=== PATIENT | male | born 1985 | race Caucasian/White ===

== ENCOUNTER 2017-08-28 03:03 | Emergency (ER) | payer OTHER ==
[~2017-08-28] VITALS: Ht 180.3 cm; Wt 68.0 kg
[~2017-08-28 03:03] MED LIST: TRAZODONE HCL50 MG PO
[2017-08-28 03:35] LABS: ABSOLUTE BASOPHILS 0.1 thou/uL (0.0-0.2); ABSOLUTE EOSINOPHILS 0.1 thou/uL (0.0-0.7); ABSOLUTE LYMPHOCYTES 2.9 thou/uL (0.8-5.3); ABSOLUTE MONOCYTES 0.6 thou/uL (0.0-1.2); ABSOLUTE NEUTROPHILS 6.1 thou/uL (1.6-8.1); BASOPHILS 0.6 %; EOSINOPHILS 0.9 %; HEMATOCRIT 46.1 % (42.0-52.0); HEMOGLOBIN 15.7 gm/dL (14.0-18.0); LYMPHOCYTES 30.1 %; MCH 31.7 pg (26.0-34.0); MCHC 34.1 g/dL (28.0-37.0); MONOCYTES 5.8 %; MPV 9.4 fl. (7.2-11.1); NUCLEATED RBCS 0 /100WBC; PLATELET COUNT* 149 thou/uL (150-400); POLYS 62.6 %; RBC 4.96 mil/uL (4.50-6.00); WBC 9.8 thou/uL (4.0-11.0)
[2017-08-28 03:45] LABS: CALCIUM 9.3 mg/dL (8.5-10.1); POTASSIUM 3.7 mmol/L (3.5-5.1)
[2017-08-28 03:49] LABS: ALBUMIN 4.2 g/dL (3.4-5.0); TOTAL BILIRUBIN 0.5 mg/dL (<0.1-1.0); TOTAL PROTEIN 7.5 g/dL (6.4-8.2)
[2017-08-28 03:54] LABS: URINE BILIRUBIN NEGATIVE (Negative); URINE BLOOD NEGATIVE (Negative); URINE CLARITY CLEAR; URINE COLOR YELLOW; URINE GLUCOSE-RANDOM NEGATIVE (Negative); URINE KETONES NEGATIVE (Negative); URINE LEUKOCYTES-REFLEX NEGATIVE (Negative); URINE NITRITE-REFLEX NEGATIVE (Negative); URINE PROTEIN TRACE (Negative); URINE SPECIFIC GRAVITY 1.025 (1.005-1.030); URINE UROBILINOGEN 0.2 E.U./dl (0.2-1.0)
[2017-08-28 03:59] LABS: AMP/METHAMP Negative (Negative); BARBITURATES Negative (Negative); BENZODIAZEPINES Negative (Negative); COCAINE Negative (Negative); METHADONE Negative (Negative); OPIATES Negative (Negative); PCP Negative (Negative); THC POSITIVE (Negative)
[2017-08-28 04:17] VITALS: BP 141/82
== END 2017-08-28 04:22 | disposition home or self-care (01) ==
LOC: M.ERS 03:03
PROVIDERS: Emergency Medicine
DX: R10.13 Epigastric pain (principal)

== ENCOUNTER → 2018-09-15 | Emergency (ER) | payer OTHER ==
[~2018-09-15] VITALS: Ht 182.9 cm; Wt 69.0 kg
[2018-09-15 16:00] LABS: URINE BILIRUBIN NEGATIVE (Negative); URINE BLOOD NEGATIVE (Negative); URINE CLARITY CLEAR; URINE COLOR YELLOW; URINE GLUCOSE-RANDOM NEGATIVE (Negative); URINE KETONES TRACE (Negative); URINE LEUKOCYTES-REFLEX NEGATIVE (Negative); URINE NITRITE-REFLEX NEGATIVE (Negative); URINE PROTEIN NEGATIVE (Negative)
[2018-09-15 16:08] LABS: AMP/METHAMP Negative (Negative); BARBITURATES Negative (Negative); BENZODIAZEPINES Negative (Negative); COCAINE Negative (Negative); METHADONE Negative (Negative); OPIATES Negative (Negative); PCP Negative (Negative); THC POSITIVE (Negative)
[2018-09-15 16:11] LABS: ABSOLUTE BASOPHILS 0.1 thou/uL (0.0-0.2); ABSOLUTE LYMPHOCYTES 1.6 thou/uL (0.8-5.3); ABSOLUTE MONOCYTES 0.9 thou/uL (0.0-1.2); ABSOLUTE NEUTROPHILS 13.3 thou/uL (1.6-8.1); BASOPHILS 0.5 %; EOSINOPHILS 0.2 %; HEMATOCRIT 48.1 % (42.0-52.0); HEMOGLOBIN 16.2 gm/dL (14.0-18.0); LYMPHOCYTES 10.3 %; MCH 31.3 pg (26.0-34.0); MCHC 33.7 g/dL (28.0-37.0); MCV 92.8 fL (80.0-100.0); MONOCYTES 5.4 %; MPV 8.6 fl. (7.2-11.1); NUCLEATED RBCS 0 /100WBC; PLATELET COUNT* 182 thou/uL (150-400); POLYS 83.6 %; RBC 5.18 mil/uL (4.50-6.00); RDW-CV 13.2 % (10.5-14.5); WBC 15.9 thou/uL (4.0-11.0)
[2018-09-15 16:28] LABS: ALBUMIN 4.9 g/dL (3.4-5.0); CALCIUM 9.7 mg/dL (8.5-10.1); POTASSIUM 3.9 mmol/L (3.5-5.1); TOTAL BILIRUBIN 0.7 mg/dL (<0.1-1.0); TOTAL PROTEIN 8.4 g/dL (6.4-8.2)
[2018-09-15 16:37] LABS: SALICYLATE < 2.8 mg/dL (2.8-20.0)
[2018-09-15 16:38] LABS: ACETAMINOPHEN < 2 ug/mL (10-30)
[2018-09-15 16:39] LABS: ALCOHOL < 10 mg/dL (<10)
[2018-09-16 08:17] VITALS: BP 99/53
== END ==
LOC: M.ERS 15:38
PROVIDERS: Family Medicine
DX: S00.83XA Contusion of other part of head, initial encounter (principal); R45.851 Suicidal ideations; W22.8XXA Striking against or struck by other objects, initial encounter; Y93.89 Activity, other specified; Y92.89 Other specified places as the place of occurrence of the external cause; Y99.8 Other external cause status

== ENCOUNTER 2018-10-17 07:10 | Emergency (ER) | payer OTHER ==
[~2018-10-17] VITALS: Ht 180.3 cm; Wt 65.8 kg
[2018-10-17 07:18] VITALS: BP 145/79
[2018-10-17] MEDS ORDERED: ZOLOFT100 MG PO (07:20)
[2018-10-17] MEDS ORDERED: IBUPROFEN 800800 M1 PO (07:31)
[2018-10-17] MEDS ORDERED: FLEXERIL PO (07:31)
[2018-10-17] MEDS ORDERED: PREDNISONE50 MG PO (07:31)
== END 2018-10-17 07:52 | disposition home or self-care (01) ==
LOC: M.ERS 07:10
DX: M54.12 Radiculopathy, cervical region (principal); M25.512 Pain in left shoulder

== ENCOUNTER 2019-02-03 00:43 | Emergency (ER) | payer OTHER ==
[~2019-02-03] VITALS: Ht 180.3 cm; Wt 65.8 kg
[~2019-02-03 00:43] MED LIST changes: +FLEXERIL PO; +IBUPROFEN 800800 M1 PO; +PREDNISONE50 MG PO; +ZOLOFT100 MG PO
[2019-02-03] MEDS ORDERED: VISTARIL 25 MG25 M1 PO (01:04)
[2019-02-03 01:40] VITALS: BP 128/82
--- NOTE | 2019-02-03 17:20 | EKG ---
[place] [address] ELECTROCARDIOGRAM REPORT Name: TONY ENGLISH Room: [facility] [id number] Admission: 02/03/19 Attend Phys: Discharge: 02/03/19 Date of : 87 Report #: [id number] THIS REPORT FOR: //name// [facility] ED Test Date: 2019-02-03 Test Time: 01:01:09 Pat Name: TONY ENGLISH Department: Room: Gender: Skein Washer: GINNY : 1985 Requested By: Jess Orosco Order Number: [id number] Ousmane MD: Vitaly Harrison Measurements Intervals Gardner Rate: 70 P: 58 WA: 120 QRS: 30 QRSD: 88 T: 34 QT: 388 QTc: 419 Interpretive Statements Sinus rhythm RSR' in V1 or V2, probably normal variant Baseline wander in lead(s) II,III,aVF No previous ECG available for comparison Electronically Signed On 02-03-2019 17:20:40 CDT by Vitaly Harrison [email or web address] <ELECTRONICALLY SIGNED> By: Vitaly Harrison MD, [facility] 02/03/19 1720 0 010 Vitaly Harrison MD, FACC /EPI
== END 2019-02-03 01:40 | disposition home or self-care (01) ==
LOC: M.ERS 00:43
DX: R07.89 Other chest pain (principal); F17.210 Nicotine dependence, cigarettes, uncomplicated